=== PATIENT | female | born 1955 | race Caucasian/White ===

== ENCOUNTER 2018-05-21 17:48 | Emergency (ER) | payer MEDICARE, MEDICAID ==
[~2018-05-21] VITALS: Ht 154.9 cm; Wt 90.7 kg
[~2018-05-21 17:48] MED LIST: LEVO175T9 GT
[2018-05-21] MEDS ORDERED: ONDANSETRON HCL/PF 4 MG/2 ML VIAL ONE (18:20)
[2018-05-21] MEDS ORDERED: ACETAMINOPHEN ES 500 MG TABLET ONE (18:21)
[2018-05-21] MEDS ORDERED: ACETAMINOPHEN ES 500 MG TABLET PO ONE (18:30)
[2018-05-21] MEDS ORDERED: IV NS 0.9% 1,000 ML BAG IV ONE (18:30)
[2018-05-21] MEDS ORDERED: ONDANSETRON HCL/PF 4 MG/2 ML VIAL IVP ONE (18:30)
[2018-05-21 18:42] LABS: BASOPHILS # (AUTO) 0.1 /CMM (0.0-0.2); BASOPHILS % (AUTO) 1.1 % (0.0-2.0); EOSINOPHILS % (AUTO) 1.1 % (0.0-6.0); HEMATOCRIT 44 % (33-45); HEMOGLOBIN 14.6 g/dL (11.5-14.8); LYMPHOCYTES # (AUTO) 1.2 /CMM (0.8-4.8); MEAN CORPUSCULAR HEMOGLOBIN 30 PG (26.0-33.0); MEAN CORPUSCULAR HGB CONC 33 g/dl (31.0-36.0); MEAN CORPUSCULAR VOLUME 89 fL (82-100); MONOCYTES # (AUTO) 0.4 /CMM (0.1-1.30); NEUTROPHILS # (AUTO) 8.4 /CMM (1.8-8.9); NEUTROPHILS % (AUTO) 81.8 % (43.0-81.0); PLATELET COUNT (AUTO) 167 /CMM (150-450); RDW COEFFICIENT OF VARIATION 14.2 (11.5-15.0); RED BLOOD CELL COUNT(AUTO) 4.97 MIL/uL (4.0-5.2); WHITE BLOOD COUNT (AUTO) 10.2 K/uL (4.3-11.0)
[2018-05-21 18:53] LABS: CALCIUM, SERUM 9.2 mg/dL (8.5-10.1); CREATININE 0.9 mg/dL (0.6-1.3); POTASSIUM 3.9 mmol/L (3.5-5.1)
[2018-05-21 18:59] LABS: APPEARANCE,URINE Clear (CLEAR); BILIRUBIN,URINE SMALL (NEGATIVE); BLOOD, URINE Trace-lysed Ery/uL (NEGATIVE); COLOR,URINE Yellow (YELLOW); KETONES,URINE Negative (NEGATIVE); LEUKOCYTE ESTERASE ,URINE Negative (NEGATIVE); NITRITE, URINE Negative (NEGATIVE); PH,URINE 5.5 (5.0-8.0); PROTEIN,URINE Trace mg/dl (NEGATIVE); UGLUCOSE Negative (NEGATIVE); UROBILINOGEN,URINE 0.2 EU/dL (0.2)
[2018-05-21 19:00] LABS: BILIRUBIN,DIRECT 0.3 mg/dL (0.0-0.2); BILIRUBIN,TOTAL 1.9 mg/dL (0.2-1.0); TOTAL PROTEIN, SERUM 7.8 g/dL (6.4-8.2)
--- NOTE | 2018-05-21 19:25 | NUR ---
received report from LAINE Hawk for pt's nba.
[2018-05-21 20:12] LABS: BACTERIA,URINE Rare /HPF (None Seen); RBC,URINE 2-4/HPF /HPF (0-2); SQUAMOUS EPITHELIAL CELL,UR Few /HPF (None Seen); URINE AMORPHOUS URATE Few /HPF (None Seen); WBC,URINE 0-2 /HPF (0-3)
--- NOTE | 2018-05-21 20:41 | NUR ---
Patient discharged to home in stable condition. Written and verbal after care instructions given. Patient verbalizes understanding of instruction. Patient left walking on foot with steady gait. Daughter at bedside will take patient home. VS stable. No s/s of acute distress or sob noted.
[2018-05-21 20:42] VITALS: BP 122/76
== END 2018-05-21 20:44 | disposition home or self-care (01) ==
LOC: ER 17:52
DX: R11.2 Nausea with vomiting, unspecified (principal); R19.7 Diarrhea, unspecified; E03.9 Hypothyroidism, unspecified; I44.4 Left anterior fascicular block; R94.31 Abnormal electrocardiogram [ECG] [EKG]; Z86.19 Personal history of other infectious and parasitic diseases; Z98.890 Other specified postprocedural states
CPT/HCPCS: 36415; 80048; 80076; 81001; 83690; 85025; 87086; 93005; 96361; 96374; 99285; A4606; J2405; J7030; 81000-TC; Z7610

== ENCOUNTER 2021-05-31 21:25 | Emergency (ER) | payer MEDICARE, MEDICAID ==
[~2021-05-31] VITALS: Ht 154.9 cm; Wt 90.7 kg
[2021-05-31] MEDS ORDERED: BACITRACIN ZINC OINT PACKET 1 EA PACKET TP ONE ×2 (21:30→21:42)
[2021-05-31] MEDS ORDERED: TDAP [DIPH/PERTUSSIS/TET] 0.5 ML VIAL IM ONE ×2 (21:30→21:42)
--- NOTE | 2021-05-31 21:45 | NUR ---
pt bibself c/o rt elbow, arm, wrist pain, with 2 cm lac on elbow s/p trip and fall on uneven surface. Pt aaox4 breathing evenly and unlabored. MD at bedside for eval. EMT at bedside for wound care. Pt attached to monitor and pox. Pt given blanket and call light within reach
--- NOTE | 2021-05-31 21:58 | NUR ---
VERIFIED WITH PATIENT IF SHE AGREES TO RECEIVE A TETANUS SHOT, SHE SAID YES
--- NOTE | 2021-05-31 22:36 | NUR ---
called marcus to have image read
--- NOTE | 2021-05-31 23:00 | NUR ---
Patient discharged to home in stable condition. Written and verbal after care instructions given. Patient verbalizes understanding of instruction. Pt ambulatory with a steady gait
[2021-05-31] MEDS ORDERED: TRAM50TA2 PO (23:04)
[2021-05-31] MEDS ORDERED: ACET-2605 PO (23:04)
[2021-05-31 23:14] VITALS: BP 130/71
== END 2021-05-31 23:00 | disposition home or self-care (01) ==
LOC: ER 21:26
DX: S51.011A Laceration without foreign body of right elbow, initial encounter (principal); M25.531 Pain in right wrist; E03.9 Hypothyroidism, unspecified; Z98.890 Other specified postprocedural states; Z79.899 Other long term (current) drug therapy; W01.0XXA Fall on same level from slipping, tripping and stumbling without subsequent striking against object, initial encounter; Y93.89 Activity, other specified; Y92.098 Other place in other non-institutional residence as the place of occurrence of the external cause; Y99.8 Other external cause status
CPT/HCPCS: 73080-TC; 73110; 90715

== ENCOUNTER 2022-04-15 20:52 | Emergency (ER) | payer MEDICARE, OTHER ==
[~2022-04-15] VITALS: Ht 157.5 cm; Wt 88.5 kg
[~2022-04-15 20:52] MED LIST changes: +ACET-2605 PO; +TRAM50TA2 PO
[2022-04-15 21:23] VITALS: BP 130/58
--- NOTE | 2022-04-15 23:25 | NUR ---
Patient discharged to home in stable condition. Written and verbal after care instructions given. Patient verbalizes understanding of instruction. Pt ambulatory with a steady gait
== END 2022-04-15 23:25 | disposition home or self-care (01) ==
LOC: ER 20:57
DX: S46.911A Strain of unspecified muscle, fascia and tendon at shoulder and upper arm level, right arm, initial encounter (principal); S66.911A Strain of unspecified muscle, fascia and tendon at wrist and hand level, right hand, initial encounter; S16.1XXA Strain of muscle, fascia and tendon at neck level, initial encounter; E03.9 Hypothyroidism, unspecified; Z98.890 Other specified postprocedural states; Z79.899 Other long term (current) drug therapy; W01.0XXA Fall on same level from slipping, tripping and stumbling without subsequent striking against object, initial encounter; Y93.01 Activity, walking, marching and hiking; Y92.89 Other specified places as the place of occurrence of the external cause; Y99.8 Other external cause status
CPT/HCPCS: 73030-TC; 73080-TC; 73110